=== PATIENT | male | born 1975 | race Two or more races ===

== ENCOUNTER 2020-04-07 02:50 | Emergency (ER) | payer OTHER ==
[2020-04-07] MEDS ORDERED: Ketorolac 10 MG Tab PO ONE (03:38)
--- NOTE | 2020-04-07 03:42 | EDM.PDOC ---
ED HPI GENERAL MEDICAL PROBLEM - General Chief Complaint: Upper Extremity Injury/Pain Stated Complaint: injury to right elbow Time Seen by Provider: 04/07/20 03:21 Source of Information: Reports: Patient History Limitations: Reports: No Limitations - History of Present Illness INITIAL COMMENTS - FREE TEXT/NARRATIVE: Patient hit right elbow on [employer] equipment when wrench he was using slipped. Over course of two hours area swelled up. Brought to ER for eval by [employer]. No numbness/tingling of hand/arm. Pain only around elbow. Denies other injuries/concerns. - Related Data Allergies Allergy/AdvReac Type Severity Reaction Status Date / Time egg Allergy Hives Verified 04/07/20 02:52 Penicillins Allergy Edema Verified 04/07/20 02:52 Tetanus Vaccines and Toxoid Allergy Hives Verified 04/07/20 02:52 Home Meds: Home Meds . [No Known Home Meds] 04/07/20 [History] Past Medical History - Past Health History Medical/Surgical History: Denies Medical/Surgical History Social & Family History - Tobacco Use Smoking Status *Q: Current Every Day Smoker Years of Tobacco use: 20 Packs/Tins Daily: 0.5 - Recreational Drug Use Recreational Drug Use: No Review of Systems - Review of Systems Review Of Systems: See Below Musculoskeletal: Reports: Joint Pain, Joint Swelling Skin: Reports: No Symptoms Neurological: Reports: No Symptoms ED EXAM, GENERAL - Physical Exam Exam: See Below Exam Limited By: No Limitations General Appearance: Alert, WD/WN, No Apparent Distress Eye Exam: Bilateral Eye: EOMI, PERRL Ears: Hearing Grossly Normal Throat/Mouth: Normal Voice, No Airway Compromise Head: Atraumatic, Normocephalic Neck: Supple Respiratory/Chest: No Respiratory Distress Extremities: Other (Exam of affected right arm shows tennis ball sized swelling over olecranon. Skin intact. No redness/heat. Patient can flex and extend elbow. Tender over area of swelling. Arm/hand otherwise nontender. Skin intact. No increased warmth noted) Neurological: Alert, Oriented, Normal Cognition, Normal Gait, No Motor/Sensory Deficits Psychiatric: Normal Affect, Normal Mood Skin Exam: Warm, Dry, Intact, Normal Color Course - Vital Signs Last Recorded V/S: Last Vital Signs Temp 35.9 C L 04/07/20 03:07 Pulse 56 L 04/07/20 03:07 Resp 16 04/07/20 03:07 BP 118/72 04/07/20 03:07 Pulse Ox 97 04/07/20 03:07 - Orders/Labs/Meds Orders: Active Orders 24 hr Category Date Time Status Elbow Min 3V Rt [CR] Stat Exams 04/07/20 03:02 Taken Meds: Medications Discontinued Medications Generic Name Dose Route Start Last Admin Trade Name Laquita PRN Reason Stop Dose Admin Ketorolac Tromethamine 10 mg 04/07/20 03:38 Toradol PO 04/07/20 03:39 ONETIME ONE - Re-Assessments/Exams Free Text/Narrative Re-Assessment/Exam: 04/07/20 03:48 Xray of elbow shows no fracture. Suspect contusion/associated swelling. Discussed normal course of contusion with patient. He was cautioned that bursitis can sometimes result from contusions and that he may need to follow up for recheck in several days if swelling worsens or area becomes hot/red/more painful. Toradol PO given. [employer] for [employer] dispensed. Patient can return to work . Ice/res t/Ibuprofen or Tylenol along with gentle activity level recommended. Departure - Departure Time of Disposition: 03:36 Disposition: Home, Self-Care 01 Condition: Good Clinical Impression: Contusion of right elbow, initial encounter - Discharge Information *PRESCRIPTION DRUG MONITORING PROGRAM REVIEWED*: Not Applicable *COPY OF PRESCRIPTION DRUG MONITORING REPORT IN PATIENT JOSE: Not Applicable Instructions: Elbow Contusion, [id number] Forms: ED Department Discharge Additional Instructions: No work for 48 hours. Ice elbow/avoid overuse of the joint over that time. Can return to work after that. If pain/swelling worse, or if redness develops, follow up for recheck. Ibuprofen/Tylenol for discomfort. Sepsis Event Note (ED) - Evaluation Sepsis Screening Result: No Definite Risk - Focused Exam Vital Signs: Vital Signs Temp Pulse Resp BP Pulse Ox 04/07/20 03:07 35.9 C L 56 L 16 118/72 97 - My Orders Last 24 Hours: My Active Orders 04/07/20 03:02 Elbow Min 3V Rt [CR] Stat - Assessment/Plan Last 24 Hours: My Active Orders 04/07/20 03:02 Elbow Min 3V Rt [CR] Stat
== END 2020-04-07 03:50 | disposition home or self-care (01) ==
LOC: LL.ED 02:50
DX: S50.01XA Contusion of right elbow, initial encounter (principal); F17.210 Nicotine dependence, cigarettes, uncomplicated; Z88.0 Allergy status to penicillin; Z88.7 Allergy status to serum and vaccine; Z91.012 Allergy to eggs
CPT/HCPCS: 73080; 99283; A9270

== ENCOUNTER 2020-05-05 02:54 | Emergency (ER) | payer OTHER ==
[2020-05-05] MEDS ORDERED: Ketorolac 60 MG/2 ML SDV IM ONE (03:05)
[2020-05-05] MEDS ORDERED: traMADol 50 MG Tab PO ONE (03:19)
--- NOTE | 2020-05-05 03:21 | EDM.PDOC ---
ED HPI GENERAL MEDICAL PROBLEM - General Chief Complaint: Upper Extremity Injury/Pain Stated Complaint: right arm pain Time Seen by Provider: 05/05/20 03:11 Source of Information: Reports: Patient History Limitations: Reports: No Limitations - History of Present Illness INITIAL COMMENTS - FREE TEXT/NARRATIVE: Exacerbation of right elbow pain tonight at work. Patient was seen here in ER last month for original injury. Patient notes that elbow more problematic after he went in for occupational health appointment earlier yesterday and they performed some sort of electrical stimulation therapy. Unable to work/elbow is very painful. No new symptoms. No weakness/numbness. Has follow up Ortho appointment this week - Related Data Allergies Allergy/AdvReac Type Severity Reaction Status Date / Time egg Allergy Hives Verified 05/05/20 03:04 Penicillins Allergy Edema Verified 05/05/20 03:04 Tetanus Vaccines and Toxoid Allergy Hives Verified 05/05/20 03:04 Home Meds: Home Meds Acetaminophen [Tylenol Arthritis] 650 mg PO DAILY@1200 05/05/20 [History] Ibuprofen [Advil] 400 mg PO Q12HR 05/05/20 [History] Past Medical History - Past Health History Medical/Surgical History: Denies Medical/Surgical History Musculoskeletal History: Reports: Other (See Below) (Right elbow contusion 03/28) Review of Systems - Review of Systems Review Of Systems: See Below Musculoskeletal: Reports: Joint Pain (right elbow) Skin: Reports: No Symptoms Neurological: Reports: No Symptoms ED EXAM, GENERAL - Physical Exam Exam: See Below Exam Limited By: No Limitations General Appearance: Alert, WD/WN, Mild Distress Eye Exam: Bilateral Eye: EOMI, PERRL Head: Atraumatic, Normocephalic Neck: Supple Respiratory/Chest: No Respiratory Distress Extremities: Limited Range of Motion (some pain limitation with elbow movement on right), Other (tender over right elbow area). No: Redness Neurological: Alert, Oriented, Normal Cognition, Normal Gait Course - Orders/Labs/Meds Meds: Medications Discontinued Medications Generic Name Dose Route Start Last Admin Trade Name Freq PRN Reason Stop Dose Admin Ketorolac Tromethamine 60 mg 05/05/20 03:05 05/05/20 03:10 Toradol IM 05/05/20 03:06 60 mg ONETIME ONE Administration - Re-Assessments/Exams Free Text/Narrative Re-Assessment/Exam: 05/05/20 03:18 Will keep patient off work until Ortho appointment this week. Toradol IM ordered. Departure - Departure Time of Disposition: 03:19 Disposition: Home, Self-Care 01 Condition: Good Clinical Impression: Right elbow pain - Discharge Information *PRESCRIPTION DRUG MONITORING PROGRAM REVIEWED*: Not Applicable *COPY OF PRESCRIPTION DRUG MONITORING REPORT IN PATIENT JOSE: Not Applicable Referrals: Cass Medeiros [employer] [Primary Care Provider] - Additional Instructions: No work until you see ortho on . Follow up as directed by Ortho. Rest elbow/ice for comfort
== END 2020-05-05 03:45 | disposition home or self-care (01) ==
LOC: LL.ED 02:54
DX: M25.521 Pain in right elbow (principal); Z88.0 Allergy status to penicillin; Z88.7 Allergy status to serum and vaccine; Z91.012 Allergy to eggs
CPT/HCPCS: 96372; 99283; A9270; J1885

== ENCOUNTER 2021-12-02 04:59 | Emergency (ER) | payer BC ==
[2021-12-02] MEDS: Ibuprofen 600 MG Tab PO ONE (05:55)
== END 2021-12-02 06:50 | disposition home or self-care (01) ==
LOC: LL.ED 04:59
DX: M54.50 Low back pain, unspecified (principal); Z91.012 Allergy to eggs; Z88.7 Allergy status to serum and vaccine; Z88.0 Allergy status to penicillin; Z72.0 Tobacco use
CPT/HCPCS: 72100; 72170; 99283-25; 99284; A9270-GY

== ENCOUNTER 2022-02-24 05:52 | Emergency (ER) | payer BC ==
[2022-02-24] MEDS ORDERED: Sodium Chloride 0.9% 10 ML Syringe FLUSH PRN (06:23)
[2022-02-24] MEDS ORDERED: Aspirin 81 MG Tab.Chew PO ONE (06:23)
[2022-02-24] MEDS ORDERED: Lactated Ringers 1,000 ML IV ONE (06:26)
[2022-02-24 07:29] LABS: ANION GAP 6.9 meq/L (7-15); CHLORIDE,CL 101 mmol/L (98-107); SODIUM,NA 138 mmol/L (136-145)
== END 2022-02-24 10:10 | disposition home or self-care (01) ==
LOC: LL.ED 05:52
DX: R07.2 Precordial pain (principal); M79.10 Myalgia, unspecified site; Z91.012 Allergy to eggs; Z88.7 Allergy status to serum and vaccine; Z88.0 Allergy status to penicillin; Z72.0 Tobacco use
CPT/HCPCS: 36415; 71046; 80053; 81003; 83605; 83690; 84484; 85025; 85610; 86140; 93005; 99285-25; A9270-GY; J7120

== ENCOUNTER 2023-02-22 05:11 | Emergency (ER) | payer BC, OTHER ==
[2023-02-22] MEDS ORDERED: Albuterol/Ipratropium 3.0-0.5 MG/3 ML Neb Soln ONE (05:13)
[2023-02-22] MEDS ORDERED: methylPREDNISolone Sodium Succinate 40 MG/1 ML SDV IVPUSH ONE (05:27)
[2023-02-22] MEDS ORDERED: Sodium Chloride 0.9% 1,000 ML IV ONE (05:28)
[2023-02-22] MEDS ORDERED: Sodium Chloride 0.9% 10 ML Syringe FLUSH PRN (05:28)
== END 2023-02-22 10:25 | disposition home or self-care (01) ==
LOC: SUPCPDRO 05:11 → LL.ED 05:11
DX: J45.901 Unspecified asthma with (acute) exacerbation (principal); Z72.0 Tobacco use; Z91.030 Bee allergy status; Z91.012 Allergy to eggs; Z88.7 Allergy status to serum and vaccine; Z88.0 Allergy status to penicillin
CPT/HCPCS: 94761; 96361; 96374; 99284-25; J2920; J3490; J7030; J7620-GY

== ENCOUNTER 2023-03-01 05:56 | Emergency (ER) | payer BC ==
[2023-03-01] MEDS ORDERED: Sodium Chloride 0.9% 10 ML Syringe FLUSH PRN (06:30)
[2023-03-01 06:37] LABS: BASOPHILS ABSOLUTE AUTO 0.05 K/uL (0.00-0.20); BASOPHILS PERCENT AUTO 0.4 % (0.0-2.0); EOSINOPHILS ABSOLUTE AUTO 0.23 K/uL (0.00-0.50); EOSINOPHILS PERCENT AUTO 1.8 % (0.0-5.0); HEMOGLOBIN 14.5 g/dL (13.1-16.8); LYMPHOCYTES ABSOLUTE AUTO 2.44 K/uL (0.50-3.50); LYMPHOCYTES PERCENT AUTO 18.7 % (10.0-50.0); MEAN CORPUSCULAR HEMOGLOBIN 29.1 pg (28.2-33.3); MEAN CORPUSCULAR HGB CONC 33.7 g/dL (31.7-36.0); MEAN CORPUSCULAR VOLUME 86.3 fL (84.0-98.0); MONOCYTES ABSOLUTE AUTO 0.66 K/uL (0.00-1.00); MONOCYTES PERCENT AUTO 5.1 % (2.0-14.0); NEUTROPHILS ABSOLUTE AUTO 9.66 K/uL (1.40-7.00); PLATELET COUNT,PLT 258 K/uL (150-350); RED BLOOD CELL COUNT 4.98 M/uL (4.33-5.41); RED CELL DISTRIBUTION WIDTH 13.8 % (11.2-14.1)
[2023-03-01] MEDS ORDERED: Iopamidol 612 MG/ML 100 ML Bottle IVPUSH ONE (06:48)
[2023-03-01 07:11] LABS: ALBUMIN 3.9 g/dL (3.4-5.0); BILIRUBIN TOTAL 0.3 mg/dL (0.2-1.0); CALCIUM 8.8 mg/dL (8.5-10.1); CARBON DIOXIDE,CO2 27.4 mmol/L (21.0-32.0); CREATININE 1.11 mg/dL (0.51-1.17); EST CRCL DRUG DOSING (CG) 93.98 mL/min; POTASSIUM,K 3.4 mmol/L (3.5-5.1); PROTEIN TOTAL,TP 7.3 g/dL (6.4-8.2)
[2023-03-01 07:40] LABS: CORONAVIRUS COVID-19 NAA NEGATIVE (NEGATIVE); INFLUENZA A NAA NEGATIVE (NEGATIVE); INFLUENZA B NAA NEGATIVE (NEGATIVE); RESPIRATORY SYNCYTIAL VIR NAA NEGATIVE (NEGATIVE)
== END 2023-03-01 09:45 | disposition home or self-care (01) ==
LOC: LL.ED 05:56
DX: R04.2 Hemoptysis (principal); R91.1 Solitary pulmonary nodule; Z20.822 Contact with and (suspected) exposure to COVID-19
CPT/HCPCS: 0241U; 36415; 71045; 71260; 80053; 82550; 84484; 85025; 93005; 93010; 99284; Q9967

== ENCOUNTER 2023-03-01 15:42 | Emergency (ER) | payer BC ==
[2023-03-01] MEDS ORDERED: Sodium Chloride 0.9% 10 ML Syringe FLUSH PRN (15:43)
[2023-03-01] MEDS ORDERED: Ondansetron 4 MG/2 ML SDV IVPUSH PRN (15:53)
[2023-03-01] MEDS ORDERED: Nitroglycerin 0.4 MG Tab.SL SL PRN (15:53)
[2023-03-01 16:00] LABS: BASOPHILS ABSOLUTE AUTO 0.08 K/uL (0.00-0.20); BASOPHILS PERCENT AUTO 0.7 % (0.0-2.0); EOSINOPHILS ABSOLUTE AUTO 0.55 K/uL (0.00-0.50); EOSINOPHILS PERCENT AUTO 4.9 % (0.0-5.0); HEMATOCRIT 41.9 % (39.0-49.0); HEMOGLOBIN 14.1 g/dL (13.1-16.8); LYMPHOCYTES ABSOLUTE AUTO 2.11 K/uL (0.50-3.50); LYMPHOCYTES PERCENT AUTO 18.8 % (10.0-50.0); MEAN CORPUSCULAR HEMOGLOBIN 28.9 pg (28.2-33.3); MEAN CORPUSCULAR HGB CONC 33.7 g/dL (31.7-36.0); MEAN CORPUSCULAR VOLUME 85.9 fL (84.0-98.0); MONOCYTES PERCENT AUTO 4.4 % (2.0-14.0); NEUTROPHILS ABSOLUTE AUTO 8.01 K/uL (1.40-7.00); NEUTROPHILS PERCENT AUTO 71.2 % (45.0-80.0); PLATELET COUNT,PLT 246 K/uL (150-350); RED BLOOD CELL COUNT 4.88 M/uL (4.33-5.41); RED CELL DISTRIBUTION WIDTH 13.9 % (11.2-14.1); WHITE BLOOD CELL COUNT,WBC 11.3 K/uL (4.0-10.2)
[2023-03-01 16:17] LABS: ALANINE AMINOTRANSFERASE,ALT 23 U/L (12-78); ALKALINE PHOSPHATASE 79 IU/L (46-116); ASPARTATE AMNIOTRANSFERASE,AST 21 U/L (15-37); BILIRUBIN TOTAL 0.5 mg/dL (0.2-1.0); BLOOD UREA NITROGEN,BUN 10 mg/dL (7-18); CALCIUM 9.1 mg/dL (8.5-10.1); CARBON DIOXIDE,CO2 26.8 mmol/L (21.0-32.0); CHLORIDE,CL 103 mmol/L (98-107); CREATINE KINASE,CK 147 U/L (26-308); CREATININE 0.95 mg/dL (0.51-1.17); GLUCOSE RANDOM 119 mg/dL (70-99); PROTEIN TOTAL,TP 7.1 g/dL (6.4-8.2); SODIUM,NA 137 mmol/L (136-145)
[2023-03-01] MEDS ORDERED: Acetaminophen 500 MG Tab PO ONE (16:17)
[2023-03-01 16:19] LABS: ESTIMATED GFR 100 mL/min (>=60)
[2023-03-01 16:25] LABS: ANION GAP 11.4 meq/L (7-15); POTASSIUM,K 4.2 mmol/L (3.5-5.1)
[2023-03-01 16:40] LABS: PRO B-TYPE NATRIUR PEPT,BNPPRO 47 pg/mL (0-125)
[2023-03-01 16:41] LABS: C-REACTIVE PROTEIN < 0.2 mg/dL (<=0.9)
== END 2023-03-01 17:32 | disposition home or self-care (01) ==
LOC: LL.ED 15:42
DX: F32.A Depression, unspecified (principal); F41.9 Anxiety disorder, unspecified; Z91.030 Bee allergy status; Z91.012 Allergy to eggs; Z88.7 Allergy status to serum and vaccine; Z88.0 Allergy status to penicillin
CPT/HCPCS: 36415; 71045; 80053; 82550; 83880; 84484; 85025; 85379; 86140; 93005; 93010; 99284; 99285; A9270-GY

== ENCOUNTER 2023-04-26 05:23 | Emergency (ER) | payer BC ==
[2023-04-26] MEDS ORDERED: Nitroglycerin 0.4 MG Tab.SL SL ONE (05:40)
[2023-04-26] MEDS ORDERED: Albuterol/Ipratropium 3.0-0.5 MG/3 ML Neb Soln NEB ONE (05:44)
[2023-04-26 06:09] LABS: MAGNESIUM 1.9 mg/dL (1.8-2.4)
[2023-04-26 06:27] LABS: BASOPHILS ABSOLUTE AUTO 0.09 K/uL (0.00-0.20); BASOPHILS PERCENT AUTO 1.1 % (0.0-2.0); EOSINOPHILS ABSOLUTE AUTO 0.76 K/uL (0.00-0.50); EOSINOPHILS PERCENT AUTO 9.2 % (0.0-5.0); HEMOGLOBIN 15.1 g/dL (13.1-16.8); LYMPHOCYTES ABSOLUTE AUTO 2.25 K/uL (0.50-3.50); LYMPHOCYTES PERCENT AUTO 27.2 % (10.0-50.0); MEAN CORPUSCULAR HEMOGLOBIN 29.1 pg (28.2-33.3); MEAN CORPUSCULAR HGB CONC 33.6 g/dL (31.7-36.0); MEAN CORPUSCULAR VOLUME 86.7 fL (84.0-98.0); MONOCYTES ABSOLUTE AUTO 0.49 K/uL (0.00-1.00); MONOCYTES PERCENT AUTO 5.9 % (2.0-14.0); NEUTROPHILS ABSOLUTE AUTO 4.68 K/uL (1.40-7.00); NEUTROPHILS PERCENT AUTO 56.6 % (45.0-80.0); PLATELET COUNT,PLT 266 K/uL (150-350); RED BLOOD CELL COUNT 5.19 M/uL (4.33-5.41); RED CELL DISTRIBUTION WIDTH 12.9 % (11.2-14.1); WHITE BLOOD CELL COUNT,WBC 8.3 K/uL (4.0-10.2)
[2023-04-26 06:33] LABS: ANION GAP 6.7 meq/L (7-15); BILIRUBIN TOTAL 0.2 mg/dL (0.2-1.0); CALCIUM 8.8 mg/dL (8.5-10.1); CARBON DIOXIDE,CO2 28.3 mmol/L (21.0-32.0); CREATININE 1.2 mg/dL (0.51-1.17); EST CRCL DRUG DOSING (CG) 86.93 mL/min; PROTEIN TOTAL,TP 7.2 g/dL (6.4-8.2)
== END 2023-04-26 07:36 | disposition home or self-care (01) ==
LOC: LL.ED 05:23
DX: R05.3 Chronic cough (principal); R06.02 Shortness of breath; J45.909 Unspecified asthma, uncomplicated; Z91.048 Other nonmedicinal substance allergy status; Z88.0 Allergy status to penicillin; Z88.7 Allergy status to serum and vaccine; Z91.012 Allergy to eggs; Z95.1 Presence of aortocoronary bypass graft; F17.210 Nicotine dependence, cigarettes, uncomplicated
CPT/HCPCS: 36415; 71046; 80053; 83735; 83880; 84484; 85025; 85379; 93005; 94640; 99285; A9270-GY; J7620-GY